=== PATIENT | female | born 1995 | race Caucasian/White ===

== ENCOUNTER 2024-04-28 12:34 | Inpatient (IN) | payer BC, OTHER, SELFPAY ==
[~2024-04-28] VITALS: Ht 157.5 cm; Wt 61.4 kg
[2024-04-28] MEDS ORDERED: HOME MED LIST COMPLETE! XX SCH (14:35)
[2024-04-28 15:14] LABS: HEMATOCRIT 48.1 % (36.0-47.0); HEMOGLOBIN 15.9 g/dl (12.0-15.5); MEAN CORPUSCULAR HEMOGLOBIN 28.5 pg (27.0-33.0); MEAN CORPUSCULAR HGB CONC 33.1 g/dl (32.0-36.5); MEAN CORPUSCULAR VOLUME 86.2 fl (80.0-96.0); PLATELET COUNT, AUTOMATED 290 10^3/uL (150-450); RED BLOOD COUNT 5.58 10^6/uL (4.00-5.40); WHITE BLOOD COUNT 9.5 10^3/uL (4.0-10.0)
[2024-04-28 15:40] LABS: AMPHETAMINES LEVEL URINE NEGATIVE (NEGATIVE); BARBITURATES URINE NEGATIVE (NEGATIVE); BENZODIAZEPINES URINE NEGATIVE (NEGATIVE); CANNABINOIDS URINE NEGATIVE (NEGATIVE); COCAINE METABOLITE URINE NEGATIVE (NEGATIVE); METHADONE URINE NEGATIVE (NEGATIVE); OPIATES URINE NEGATIVE (NEGATIVE); PHENCYCLIDINE URINE NEGATIVE (NEGATIVE)
[2024-04-28 15:41] LABS: ETHYL ALCOHOL (ETHANOL) < 0.003 % (0.000-0.010)
[2024-04-28 15:43] LABS: ALBUMIN 5.1 G/DL (3.2-5.2); ALKALINE PHOSPHATASE 126 U/L (46-116); ALT/SGPT 26 U/L (7.0-40); AST/SGOT 22 U/L (<34); BILIRUBIN,DIRECT 0.4 MG/DL (<0.4); BILIRUBIN,TOTAL 1.4 MG/DL (0.3-1.2); BLOOD UREA NITROGEN 13 MG/DL (9-23); CALCIUM LEVEL 9.9 MG/DL (8.5-10.1); CARBON DIOXIDE LEVEL 26 MMOL/L (20-31); CHLORIDE LEVEL 102 MMOL/L (98-107); CREATININE FOR GFR 0.73 MG/DL (0.55-1.30); GLOMERULAR FILTRATION RATE > 60.0 (>60); GLUCOSE, FASTING 70 MG/DL (60-100); POTASSIUM SERUM 4.2 MMOL/L (3.5-5.1); SALICYLATE LEVEL < 3.0 MG/DL (<30); SODIUM LEVEL 137 MMOL/L (136-145); TOTAL PROTEIN 8.8 G/DL (5.7-8.2)
[2024-04-28 15:45] LABS: THYROID STIMULATING HORMONE 0.391 uIU/ML (0.55-4.78)
[2024-04-28] MEDS ORDERED: ACETAMINOPHEN TAB 650MG DOSE (2X325MG) PO PRN (19:15)
[2024-04-28] MEDS ORDERED: diphenhydrAMINE 25MG CAP PO PRN (19:15)
[2024-04-28] MEDS ORDERED: IBUPROFEN 400MG TAB PO PRN (19:15)
[2024-04-28] MEDS ORDERED: LORazepam 1 MG TAB PO PRN (19:15)
[2024-04-28] MEDS ORDERED: traZODone 50 MG TAB PO PRN (19:15)
[2024-04-28] MEDS ORDERED: MOM 30ML SUSPENSION UDC PO PRN (19:15)
[2024-04-28] MEDS ORDERED: MAALOX 30 ML SUSP *UDC PO PRN (19:15)
[2024-04-28 21:23] VITALS: BP 132/88; TEMP 97.8; O2SAT 99
[2024-04-29 06:14] VITALS: BP 109/55; TEMP 97.8; O2SAT 98
[2024-04-29 15:18] VITALS: BP 100/58; TEMP 97.3; O2SAT 98
[2024-04-30 06:09] VITALS: BP 122/76; TEMP 97.4; O2SAT 97
[2024-04-30] MEDS ORDERED: SERTRALINE 100 MG TAB PO SCH (09:00)
[2024-04-30] MEDS: SERTRALINE HCL 50 MG TAB PO SCH (13:23)
[2024-04-30 16:31] VITALS: BP 121/74; TEMP 98; O2SAT 96
[2024-05-01 06:20] VITALS: BP 123/74; TEMP 97.9; O2SAT 96
[2024-05-01 17:11] VITALS: BP 120/75; TEMP 98.7; O2SAT 100
[2024-05-02 06:25] VITALS: BP 103/53; TEMP 98; O2SAT 98
[2024-05-02] MEDS: SERTRALINE HCL 25 MG TABLET PO SCH (08:48)
[2024-05-02] MEDS ORDERED: SERT25TA21 PO (08:55)
== END 2024-05-02 11:30 | disposition home or self-care (01) | DRG 881 ==
LOC: M ED 12:34 → M ED INP 19:13 → M PSY 21:13
PROVIDERS: ADMIT Psychiatry & Neurology Psychiatry; ATTEND Psychiatry & Neurology Child & Adolescent Psychiatry
DX: F32.9 Major depressive disorder, single episode, unspecified (principal); Z63.0 Problems in relationship with spouse or partner